=== PATIENT | female | born 2000 | race African-American/Black ===

== ENCOUNTER 2022-07-21 08:48 | Emergency (ER) | payer OTHER ==
[~2022-07-21] VITALS: Ht 162.6 cm; Wt 79.4 kg
[2022-07-21] MEDS ORDERED: NAPROSYN500 MG PO (10:07)
== END 2022-07-21 10:15 | disposition home or self-care (01) ==
LOC: FSED 09:09
DX: M25.562 Pain in left knee (principal); S83.8X2A Sprain of other specified parts of left knee, initial encounter; X50.1XXA Overexertion from prolonged static or awkward postures, initial encounter; Y92.89 Other specified places as the place of occurrence of the external cause
CPT/HCPCS: 99283

== ENCOUNTER 2022-09-03 10:34 | Emergency (ER) | payer OTHER ==
[~2022-09-03] VITALS: Ht 162.6 cm; Wt 77.3 kg
[~2022-09-03 10:34] MED LIST: NAPROSYN500 MG PO
[2022-09-03] MEDS ORDERED: PROTONIX20 MG PO (11:16)
[2022-09-03] MEDS ORDERED: PEPCID20 MG PO (13:25)
== END 2022-09-03 13:33 | disposition home or self-care (01) ==
LOC: FSED 11:15
DX: R10.13 Epigastric pain (principal); K21.9 Gastro-esophageal reflux disease without esophagitis; R11.0 Nausea; F17.210 Nicotine dependence, cigarettes, uncomplicated
CPT/HCPCS: 76705; 80048; 80076; 81025; 85025; 99284

== ENCOUNTER 2023-09-17 18:37 | Emergency (ER) | payer SELFPAY ==
[~2023-09-17] VITALS: Ht 162.6 cm; Wt 77.1 kg
[~2023-09-17 18:37] MED LIST changes: +PEPCID20 MG PO; +PROTONIX20 MG PO
[2023-09-17 18:50] VITALS: O2SAT 100
[2023-09-17] MEDS ORDERED: NAPROSYN500 MG PO (19:02)
[2023-09-17] MEDS ORDERED: CEFDINIR300 MG PO (19:02)
== END 2023-09-17 19:30 | disposition home or self-care (01) ==
LOC: FSED 18:41
DX: R30.0 Dysuria (principal); N30.00 Acute cystitis without hematuria; R35.0 Frequency of micturition; R39.15 Urgency of urination; K21.9 Gastro-esophageal reflux disease without esophagitis
CPT/HCPCS: 81003; 81025; 99283